=== PATIENT | female | born 1955 | race American Indian/Alaskan Native ===

== ENCOUNTER 2020-04-19 08:58 | Outpatient (CLI) | payer MEDICARE ==
--- NOTE | 2020-04-20 08:32 | Mammography Report ---
DIGITAL SCREENING MAMMOGRAM WITH CAD, 04/19/2020 INDICATION: Routine screening mammography. TECHNIQUE: Digital bilateral 2D mammography was obtained in the craniocaudal and mediolateral obliq ue projections. This examination was interpreted with the benefit of Computer-Aided Detection analysi s. COMPARISON: 08/06/2013 FINDINGS: Breast Density: The breasts are heterogeneously dense, which may obscure small masses. There is no evidence of dominant mass, suspicious calcifications or architectural distortion in eithe r breast. Postsurgical scar, left breast. No significant interval change. IMPRESSION: No evidence of malignancy. Follow up recommendation: Routine yearly BI-RADS Category 2: Benign. A "normal" or negative report should not discourage follow up or biopsy of a clinically significant f inding. A written summary of these findings will be mailed to the patient. The patient will be entered into a mammography reporting system which will generate a reminder letter for the patient's next appointmen t at the appropriate interval. The [employer] recommends yearly mammograms starting at age 40 and continuing as l judi as a woman is in good health. Breast MRI is recommended for women with an approximate 20-25% or greater lifetime risk of breast cancer, including women with a strong family history of breast or ova fahad cancer or who have been treated for Hodgkin's disease. Signer Name: Jennifer Philip MD Signed: 04/20/2020 8:27 AM Workstation Name: [email or web address]
== END 2020-04-19 08:59 | disposition home or self-care (01) ==
LOC: SPVWC 08:58
PROVIDERS: ATTEND Family Medicine
DX: Z12.31 Encounter for screening mammogram for malignant neoplasm of breast (principal)
CPT/HCPCS: 77067

== ENCOUNTER 2020-05-15 17:44 | Emergency (ER) | payer MEDICARE ==
[2020-05-15 19:46] VITALS: BP 175/94
[2020-05-15 20:00] LABS: Basophils % (Auto) 0.8 % (0.0-1.8); Eosinophils # (Auto) 0.1 K/mm3 (0.0-0.4); Eosinophils % (Auto) 1.6 % (0.0-4.3); Hematocrit 38.6 % (30.3-42.9); Hemoglobin 12.8 gm/dl (10.1-14.3); Lymphocytes # (Auto) 2.3 K/mm3 (1.2-5.4); Lymphocytes % (Auto) 42.7 % (13.4-35.0); Mean Corpuscular HGB Conc 33 % (30-34); Mean Corpuscular Volume 93 fl (79-97); Monocytes # (Auto) 0.3 K/mm3 (0.0-0.8); Monocytes % (Auto) 5.9 % (0.0-7.3); Platelet Count 324 K/mm3 (140-440); Red Blood Count 4.15 M/mm3 (3.65-5.03); Red Cell Distribution Width 14.4 % (13.2-15.2)
[2020-05-15 20:17] LABS: Bilirubin,Urine NEG (Negative); Blood,Urine SM (Negative); Color,Urine Yellow (Yellow); Hyaline Casts,Urine 2 /LPF; Mucus,Urine 1+ /HPF; Protein,Urine <15 mg/dL mg/dL (Negative)
[2020-05-15 20:23] LABS: Albumin 4.4 g/dL (3.9-5); Calcium 10.3 mg/dL (8.4-10.2)
[2020-05-15] MEDS ORDERED: ADENOSINE 6 MG/2 ML INJ ONE (20:30)
--- NOTE | 2020-05-15 20:56 | Emergency Department Report ---
ED General Adult HPI - General Chief complaint: High BP Stated complaint: HBP Time Seen by Provider: 05/15/20 19:18 Source: patient Mode of arrival: Ambulatory Limitations: No Limitations - History of Present Illness Initial comments: Patient is a 64-year-old female presents emergency room with complaints of elevated blood pressure. She states that [facility] her blood pressure checked and that it was elevated. She does not know what the number was. She was not having any symptoms at all but just wanted to have her blood pressure checked. She denies any headache, chest pain, shortness of breath, leg swelling, nausea, vomiting, diarrhea, fever, cough, numbness, weakness, bowel or bladder incontinence, vision changes. She has a past medical history of hypertension. She states that she takes losartan 50 mg once a day and has only been on it for 1 month. She states that she previously was on another medication but it was causing kidney dysfunction, she does not know the name of the medication. She denies any other past medical history. No allergies to medications. - Related Data Previous Rx's Medication Instructions Recorded Last Taken Type Losartan [Cozaar] 75 mg PO QDAY 30 Days #90 tablet 05/15/20 Unknown Rx Allergies Allergy/AdvReac Type Severity Reaction Status Date / Time No Known Allergies Allergy Unverified 05/15/20 17:57 ED Review of Systems ROS: Stated complaint: HBP Other details as noted in HPI Comment: All other systems reviewed and negative ED Past Medical Hx - Past Medical History Previous Medical History?: Yes Hx Hypertension: Yes - Surgical History Past Surgical History?: No - Social History Smoking Status: Never Smoker Substance Use Type: None - Medications Home Medications: Home Medications Medication Instructions Recorded Confirmed Last Taken Type Losartan [Cozaar] 75 mg PO QDAY 30 Days #90 tablet 05/15/20 Unknown Rx ED Physical Exam - General Limitations: No Limitations General appearance: alert, in no apparent distress - Head Head exam: Present: atraumatic, normocephalic - Eye Eye exam: Present: normal appearance, PERRL, EOMI. Absent: periorbital swelling, periorbital tenderness Pupils: Present: normal accommodation - ENT ENT exam: Present: mucous membranes moist - Respiratory Respiratory exam: Present: normal lung sounds bilaterally. Absent: respiratory distress, wheezes, rales, rhonchi, stridor, chest wall tenderness, accessory muscle use, decreased breath sounds, prolonged expiratory - Cardiovascular Cardiovascular Exam: Present: regular rate, normal rhythm, normal heart sounds. Absent: systolic murmur, diastolic murmur, rubs, gallop - Neurological Exam Neurological exam: Present: alert, oriented X3, CN II-XII intact, normal gait. Absent: motor sensory deficit - Psychiatric Psychiatric exam: Present: normal affect, normal mood - Skin Skin exam: Present: warm, dry, intact ED Course Vital Signs 05/15/20 05/15/20 05/15/20 17:58 19:46 19:49 Temperature 98.5 F 98.2 F Pulse Rate 81 61 Respiratory 18 18 18 Rate Blood Pressure 185/113 Blood Pressure 175/94 [Left] O2 Sat by Pulse 97 98 98 Oximetry 05/15/20 21:10 Temperature Pulse Rate 69 Respiratory 17 Rate Blood Pressure Blood Pressure [Left] O2 Sat by Pulse 97 Oximetry ED Medical Decision Making - Lab Data Result diagrams: 05/15/20 19:40 05/15/20 19:40 Labs 05/15/20 05/15/20 05/15/20 19:40 19:40 19:45 WBC 5.5 RBC 4.15 Hgb 12.8 Hct 38.6 MCV 93 MCH 31 MCHC 33 RDW 14.4 Plt Count 324 Lymph % (Auto) 42.7 H Sutter % (Auto) 5.9 Eos % (Auto) 1.6 Baso % (Auto) 0.8 Lymph # (Auto) 2.3 Sutter # (Auto) 0.3 Eos # (Auto) 0.1 Baso # (Auto) 0.0 Seg Neutrophils % 49.0 Seg Neutrophils # 2.7 Sodium 140 Potassium 4.0 Chloride 103.2 Carbon Dioxide 28 Anion Gap 13 BUN 22 H Creatinine 1.2 Estimated GFR 54 BUN/Creatinine Ratio 18 Glucose 96 Calcium 10.3 H Total Bilirubin 0.40 AST 16 ALT 10 Alkaline Phosphatase 74 Total Protein 7.6 Albumin 4.4 Albumin/Globulin Ratio 1.4 Urine Color Yellow Urine Turbidity Clear Urine pH 5.0 Ur Specific [place] 1.026 Urine Protein <15 mg/dl Urine Glucose (UA) Neg Urine Ketones Neg Urine Blood Sm Urine Nitrite Neg Urine Bilirubin Neg Urine Urobilinogen 2.0 Ur Leukocyte Esterase Sm Urine WBC (Auto) 3.0 Urine RBC (Auto) 2.0 U Epithel Cells (Auto) 2.0 Hyaline Casts 2 Urine Mucus 1+ Vital Signs 05/15/20 05/15/20 05/15/20 17:58 19:46 19:49 Temperature 98.5 F 98.2 F Pulse Rate 81 61 Respiratory 18 18 18 Rate Blood Pressure 185/113 Blood Pressure 175/94 [Left] O2 Sat by Pulse 97 98 98 Oximetry 05/15/20 21:10 Temperature Pulse Rate 69 Respiratory 17 Rate Blood Pressure Blood Pressure [Left] O2 Sat by Pulse 97 Oximetry - Medical Decision Making Patient is a 64-year-old female presents emergency room with complaints of elevated blood pressure. She states that [facility] her blood pressure checked and that it was elevated. She does not know what the number was. She was not having any symptoms at all but just wanted to have her blood pressure checked. She denies any headache, chest pain, shortness of breath, leg swelling, nausea, vomiting, diarrhea, fever, cough, numbness, weakness, bowel or bladder incontinence, vision changes. She has a past medical history of hypertension. She states that she takes losartan 50 mg once a day and has only been on it for 1 month. She states that she previously was on another medication but it was causing kidney dysfunction, she does not know the name of the medication. She denies any other past medical history. No allergies to medications. initial vitals with elevated BP which improved upon repeat without intervention. labs are stable. discussed all results with pt. the up-to-date medical literature advises against emergently lowering asymptomatic blood pressure. will increase patient's blood pressure medication losartan from 50 mg once a day to 75 mg once a day and have her follow-up with her primary care physician for close monitoring. advised pt Will be increasing your losartan from 50 mg to 75 mg daily. Increase your water intake. Eat a low-sodium (low salt) diet. Please follow-up with your primary care doctor within the next 2 to 3 days. please keep a blood pressure log and take this to your primary care doctor. Incorporate 30 to 60 minutes of aerobic exercise daily. Return to emergency room immediately for any new or worsening symptoms or if you began experiencing any symptoms. - Differential Diagnosis chronic HTN, AXEL, HTN urgency, HTN emergency Critical care attestation.: If time is entered above; I have spent that time in minutes in the direct care of this critically ill patient, excluding procedure time. ED Disposition Clinical Impression: Hypertension Qualifiers: Hypertension type: unspecified Qualified Code(s): I10 - Essential (primary) hypertension Disposition: TO HOME OR SELFCARE Is pt being admited?: No Does the pt Need Aspirin: No Condition: Stable Instructions: Low Sodium Diet (ED), Hypertension (ED) Additional Instructions: Will be increasing your losartan from 50 mg to 75 mg daily. Increase your water intake. Eat a low-sodium (low salt) diet. Please follow-up with your primary care doctor within the next 2 to 3 days. please keep a blood pressure log and take this to your primary care doctor. Incorporate 30 to 60 minutes of aerobic exercise daily. Return to emergency room immediately for any new or worsening symptoms or if you began experiencing any symptoms. Prescriptions: Losartan [Cozaar] 75 mg PO QDAY 30 Days #90 tablet Referrals: PRIMARY CARE, [Primary Care Provider] - 2-3 Days Time of Disposition: 20:54 Print Language: GRENADIAN
== END 2020-05-15 21:10 | disposition home or self-care (01) ==
LOC: ED 17:44
DX: I10 Essential (primary) hypertension (principal)
CPT/HCPCS: 36415; 80053; 81001; 85025; 99283; J0153

== ENCOUNTER 2021-04-23 10:17 | Outpatient (CLI) | payer MEDICARE ==
--- NOTE | 2021-04-24 07:58 | Mammography Report ---
BILATERAL DIGITAL SCREENING MAMMOGRAM WITH CAD HISTORY: Screening mammogram. TECHNIQUE: Routine digital mammographic imaging performed. This examination was interpreted with jon lubin benefit of Computer-aided Detection analysis. COMPARISON: 04/19/2020, 08/06/2013. FINDINGS: Breast Density: scattered fibroglandular appearance of the breast tissue. Digital CC and MLO views demonstrate no mammographic evidence of malignancy. Left lateral breast par tially calcified oval mass. This appears not significantly changed in size dating back to 2013 mammog ana which would support a benign etiology. IMPRESSION: No mammographic evidence of malignancy. If the clinical examination remains stable, recommend bilate ral mammogram in approximately one year. BIRADS 2: Benign Finding(s). FURTHER INFORMATION: According to the [employer], yearly mammograms are recommend ed starting at age 40 and continuing as long as a woman is in good health. Clinical Breast Exams shou ld be part of a periodic health exam-about every 3 years for women in their 20s and 30s and every yea r for women 40 and over. Breast self exam is an option for women starting in their 20s. Any breast ch kasey noted on a breast self exam should be reported promptly to the patient's healthcare provider. Br east MRI is recommended for women with an approximately 20-25% or greater lifetime risk of breast can cer, including women with a strong family history of breast or ovarian cancer and women who have been treated for Hodgkin's disease. A negative Mammography report should not discourage follow up or biopsy of a clinically significant f inding and/or abnormality. Dense breast tissue may obscure small neoplasms. The patient will be entered into a reminder system with a target due date for the next screening mamm ogram. Signer Name: Nirav Gudino MD Signed: 04/24/2021 7:54 AM Workstation Name: [id number]
== END 2021-04-23 10:18 | disposition home or self-care (01) ==
LOC: SPVWC 10:17
PROVIDERS: ATTEND Family Medicine
DX: Z12.31 Encounter for screening mammogram for malignant neoplasm of breast (principal); N64.89 Other specified disorders of breast
CPT/HCPCS: 77067